=== PATIENT | female | born 1995 | race Caucasian/White ===

== ENCOUNTER 2024-04-10 22:06 | Emergency (ER) | payer MEDICAID, SELFPAY ==
[2024-04-10 22:11] VITALS: BP 158/104; PULSE 122; TEMP 36.8; O2SAT 97; BMI 63.1
--- NOTE | 2024-04-10 22:24 | ED.PREGNANC1 ---
HPI - General Chief complaint: Vaginal Bleeding Stated complaint: Bleeding Time Seen by Provider: 04/10/24 22:16 Source: patient Mode of arrival: walk-in Limitations: no limitations History of Present Illness HPI Narrative: female presents with vaginal bleeding She took a home test on 04/05 that was positive. She was having bleeding at the time. She contacted her [employer] = Dr Gaffney in [place]. The patient was ordered to get out-patient HCG Quant x 2. The first, on 04/06 was 1100. The second on 04/09 was 3300. The patient came to the ED today because the bleeding has continued. She has also experienced intermittent cramping in the suprapubic area since last week. Related Data Allergies Allergy/AdvReac Type Severity Reaction Status Date / Time tobramycin (From Tobrex) Allergy Intermediate Redness of Verified 04/10/24 22:11 Skin PFSH PFSH Social History Little interest or pleasure in doing things: not at all Feeling down, depressed, or hopeless: not at all Exam Narrative Exam Narrative: Nurses notes and vital signs reviewed and patient is not hypoxic. afebrile General: Well-appearing and in no apparent distress. Skin: Warm, dry, no pallor noted. . Eye: Pupils are equal, round and EOMI. No scleral icterus. Ears, Nose, Mouth, and Throat: Oral mucosa is moist Cardiovascular: Regular Rate and Rhythm without murmur, gallop or rub. Respiratory: No accessory muscle use or respiratory distress. Lungs are clear to auscultation, no wheezing, rales or rhonchi Back: No CVA tenderness Musculoskeletal: normal ROM GI: Abdomen is soft, non-distended. Normal bowel sounds. Obese but no masses appreciated. No tenderness to palpation. No rebound, guarding, or rigidity noted. Neurological: A&O x4. No cranial nerve dysfunction observed. No truncal ataxia. Moves all extremities. Sensation intact. Psychiatric: Cooperative and interactive. Normal mood and affect. Constitutional Vital Signs, click to edit/add: Last Vital Signs Temp 98.3 F 04/10/24 22:11 Pulse 101 H 04/10/24 23:19 Resp 18 04/10/24 22:11 BP 148/92 H 04/10/24 23:19 Pulse Ox 99 04/10/24 23:19 O2 Del Method Room Air 04/10/24 22:11 Course Vital Signs Vital signs: Vital Signs Temperature 98.3 F 04/10/24 22:11 Pulse Rate 122 H 04/10/24 22:11 Respiratory Rate 18 04/10/24 22:11 Blood Pressure 158/104 H 04/10/24 22:11 Pulse Oximetry 97 04/10/24 22:11 Oxygen Delivery Method Room Air 04/10/24 22:11 Temperature 98.3 F 04/10/24 22:11 Pulse Rate 101 H 04/10/24 23:19 Respiratory Rate 18 04/10/24 22:11 Blood Pressure 148/92 H 04/10/24 23:19 Pulse Oximetry 99 04/10/24 23:19 Oxygen Delivery Method Room Air 04/10/24 22:11 MDM - OB/Uterine Contractions MDM Narrative Medical decision making narrative: Quant HCG obtained = 3947. Her data is as follows: 04/05 - positive qual pregn (already bleeding) 04/06 HCG Quant = 1100 04/09 HCG Quant = 3300 04/10 HCG Quant = 3947 Hcg not increasing as expecting, indicating miscarriage. The patient has a benign exam but is tachycardic at 122 bpm on triage. Recheck at 2316, HR = . Will call in US tech for further evaluation. The patient's ultrasound revealed an intrauterine gestation at approximately 6 weeks and 5 days with a heart rate of 122 bpm. However the patient also has an area adjacent to the fundus near the ovary and possibly involving the ovary that could be a complex ovarian cyst but has some appearance resembling a pole but with a different gestational age and an intrauterine gestation. The radiologist called to tell me about these findings. The plan at this point will be to discharge the patient home with close gynecological follow-up and the stockbroker can repeat ultrasound down the road to further evaluate both the intrauterine gestation as well as this change near the ovary. The patient was informed of this. She is discharged home and will have close follow up with her [employer]. Discussed reasons to return to the ED. Lab Data Attestation: I reviewed the patient's lab results. Labs: Lab Results 04/10/24 Range/Units 21:20 HCG, Quant 3947 mIU/mL Imaging Data us OB TV: Radiologist's impression: ITS Impressions Transvaginal US 04/10/24 23:21 IMPRESSION: 1. There is a live intrauterine gestation with a gestational age of 6 weeks 5 days and estimated date of delivery of 11/29/2024. 2. An indeterminate complex cystic focus is present outside of the uterus as discussed above with an oval internal echogenicity. Neither ovary is well delineated on this exam. Based on the sonographic features, the possibility of an ectopic cannot entirely be excluded. It should be noted that this would be exceedingly rare. Close clinical and sonographic follow-up are recommended. Critical result findings were notified by telephone and discussed withManjit Vallejo on 04/11/2024 1:[address] Guzman. The clinician expressed understanding of these results. Electronically authenticated by: RYLEY GUZMAN Date: 04/11/2024 01:29 Discharge Plan Discharge Chief Complaint: Vaginal Bleeding Clinical Impression: Threatened , Ovarian cyst Patient Disposition: Home, Self-Care Time of Disposition Decision: 01:29 Mode of Transportation: Private Vehicle Print Language: E[place] Instructions: Threatened Miscarriage (ED), Ovarian Cyst (ED) Referrals: Physician,Non-Staff, MD [Primary Care Provider] - 1 week
[2024-04-10 23:08] LABS: HCG Quantitative 3947 mIU/mL
[2024-04-10 23:19] VITALS: BP 148/92; PULSE 101; O2SAT 99
--- NOTE | 2024-04-10 23:21 | US_ITS ---
The [address] [address] Patient Name: ELIF COLÓN MRN: [id number] date: 1995 Sex: F Assigned Patient Location: ER Current Patient Location: .[facility] Accession/Order Number: [id number] Exam Date: 04/10/2024 23:45 Report Date: 04/11/2024 01:29 At the request of: DEEPAK HILTON Procedure: US OB transvaginal US OB transvaginal HISTORY: Vaginal bleeding, quant 3947, 6-8weeks COMPARISONS: None TECHNIQUE: Transvaginal imaging the pelvis was performed. FINDINGS: There is a gestational sac with a yolk sac, pole and a heartbeat measuring 129 bpm. The crown-rump length is 0.77 cm. Gestational age based on this ultrasound is 6 weeks 5 days with estimated date of delivery of 11/29/2024. Neither ovary is visualized on this examination. There is a large amount of bowel gas interference on this exam. There is an indeterminate complex cystic focus outside of the uterus adjacent to the uterine fundus with an oval internal echogenicity. This is indeterminate. The echogenicity measures 1.3 cm. The configuration is similar to a pole. While this would be exceedingly rare, the possibility of an ectopic cannot entirely be excluded. US/US OB transvaginal IMPRESSION: 1. There is a live intrauterine gestation with a gestational age of 6 weeks 5 days and estimated date of delivery of 11/29/2024. 2. An indeterminate complex cystic focus is present outside of the uterus as discussed above with an oval internal echogenicity. Neither ovary is well delineated on this exam. Based on the sonographic features, the possibility of an ectopic cannot entirely be excluded. It should be noted that this would be exceedingly rare. Close clinical and sonographic follow-up are recommended. Critical result findings were notified by telephone and discussed withDeepak Hilton on 04/11/2024 1:[address] Schafer. The clinician expressed understanding of these results. Electronically authenticated by: RYLEY SCHAFER Date: 04/11/2024 01:29
== END 2024-04-11 01:41 | disposition home or self-care (01) ==
PROVIDERS: Emergency Provider Emergency Medicine
DX: O20.0 Threatened abortion (principal); Z3A.01 Less than 8 weeks gestation of pregnancy; O34.81 Maternal care for other abnormalities of pelvic organs, first trimester; N83.209 Unspecified ovarian cyst, unspecified side
CPT/HCPCS: 36415; 76817; 84702; 99285